=== PATIENT | male | born 1960 | race Caucasian/White ===

== ENCOUNTER 2018-11-21 09:50 | Day surgery (SDC) | payer OTHER, MEDICAID ==
[~2018-11-21] VITALS: Ht 182.9 cm; Wt 114.8 kg
[2018-11-21 10:37] VITALS: BP 112/62
[2018-11-21 10:44] LABS: CARBON DIOXIDE 28.4 mmol/L (21-32); CREATININE SERUM 2.7 mg/dL (0.7-1.3); POTASSIUM SERUM 4.1 mmol/L (3.5-5.1)
[2018-11-21 10:49] LABS: BASOPHIL % 0.1 % (0-2)
[2018-11-21 11:43] LABS: PLATELET COUNT 52 x10^3mcL (130-400); RED CELL DISTRIBUTION WIDTH 17.3 % (11.5-14.5)
[2018-11-21 15:46] VITALS: BP 123/70
== END 2018-11-21 15:10 | disposition home or self-care (01) ==
LOC: DS 09:50 → OR 12:30 → DS 12:30
PROVIDERS: Anesthesiology; Surgery
PROC: 03170ZD Bypass Right Brachial Artery to Upper Arm Vein, Open Approach (ICD-10-PCS; principal; 2018-11-21 12:30)
DX: I12.9 Hypertensive chronic kidney disease with stage 1 through stage 4 chronic kidney disease, or unspecified chronic kidney disease (principal); N18.6 End stage renal disease; E11.22 Type 2 diabetes mellitus with diabetic chronic kidney disease
CPT/HCPCS: J0690; J1644; J2001; J2704; J3010; J3490; J7030; Q0092